=== PATIENT | female | born 1965 | race Caucasian/White ===

== ENCOUNTER 2019-07-15 10:02 | Emergency (ER) | payer OTHER ==
[~2019-07-15] VITALS: Ht 162.6 cm; Wt 89.8 kg
[2019-07-15] MEDS ORDERED: ASPIR 8181 MG (10:22)
[2019-07-15] MEDS ORDERED: ENDOCET 5-3251 EACH (10:23)
[2019-07-15] MEDS ORDERED: DEPAKOTE ER250 MG (10:23)
[2019-07-15] MEDS ORDERED: CLONAZEPAM1 M1 (10:23)
[2019-07-15] MEDS ORDERED: TREXIMET 85-501 EACH (10:24)
== END 2019-07-15 13:08 | disposition home or self-care (01) ==
LOC: ER 10:02
DX: B34.9 Viral infection, unspecified (principal)

== ENCOUNTER 2019-07-20 12:22 | Emergency (ER) | payer OTHER ==
[~2019-07-20] VITALS: Ht 162.6 cm; Wt 92.5 kg
[~2019-07-20 12:22] MED LIST: ASPIR 8181 MG; CLONAZEPAM1 M1; DEPAKOTE ER250 MG; ENDOCET 5-3251 EACH; TREXIMET 85-501 EACH
== END 2019-07-20 18:10 | disposition home or self-care (01) ==
LOC: ER 12:22
DX: B34.9 Viral infection, unspecified (principal); R53.81 Other malaise; Z03.818 Encounter for observation for suspected exposure to other biological agents ruled out

== ENCOUNTER 2019-07-31 11:56 | Emergency (ER) | payer OTHER ==
[~2019-07-31] VITALS: Ht 162.6 cm; Wt 94.3 kg
[2019-07-31] MEDS ORDERED: LEVAQUIN500 MG PO (16:10)
[2019-07-31] MEDS ORDERED: TESSALON PERLE100 MG PO (16:10)
== END 2019-07-31 16:57 | disposition home or self-care (01) ==
LOC: ER 11:56
DX: R06.02 Shortness of breath (principal); R05 Cough

== ENCOUNTER → 2019-08-22 | Emergency (ER) | payer OTHER ==
[~2019-08-22] VITALS: Ht 162.6 cm; Wt 91.2 kg
[~2019-08-22] MED LIST changes: +LEVAQUIN500 MG PO; +TESSALON PERLE100 MG PO
== END | disposition left against medical advice (07) ==
LOC: ER 15:44
DX: Z53.20 Procedure and treatment not carried out because of patient's decision for unspecified reasons (principal)

== ENCOUNTER → 2020-02-13 | Emergency (ER) | payer OTHER ==
[~2020-02-13] VITALS: Ht 162.6 cm; Wt 90.3 kg
[~2020-02-13] MED LIST changes: +INTESTINEX680 M1 PO; +MEDROLPACK PO; +MONODOX100 MG PO; +SYMBICORT 16010.2 GM IH
== END | disposition left against medical advice (07) ==
LOC: ER 11:00
DX: J22 Unspecified acute lower respiratory infection (principal); J45.998 Other asthma; Z03.818 Encounter for observation for suspected exposure to other biological agents ruled out

== ENCOUNTER 2020-02-28 15:42 | Emergency (ER) | payer OTHER ==
[~2020-02-28] VITALS: Ht 162.6 cm; Wt 90.3 kg
[~2020-02-28 15:42] MED LIST changes: -INTESTINEX680 M1 PO; -MEDROLPACK PO; -MONODOX100 MG PO; -SYMBICORT 16010.2 GM IH
[2020-02-29] MEDS ORDERED: INTESTINEX680 M1 PO (10:48)
[2020-02-29] MEDS ORDERED: MONODOX100 MG PO (10:48)
[2020-02-29] MEDS ORDERED: SYMBICORT 16010.2 GM IH (10:48)
[2020-02-29] MEDS ORDERED: MEDROLPACK PO (10:48)
== END 2020-02-29 11:06 | disposition home or self-care (01) ==
LOC: ER 15:42
DX: J45.998 Other asthma (principal); Z03.818 Encounter for observation for suspected exposure to other biological agents ruled out

== ENCOUNTER 2020-03-12 10:24 | Emergency (ER) | payer OTHER ==
[~2020-03-12] VITALS: Ht 162.6 cm; Wt 89.8 kg
[~2020-03-12 10:24] MED LIST changes: +INTESTINEX680 M1 PO; +MEDROLPACK PO; +MONODOX100 MG PO; +SYMBICORT 16010.2 GM IH
== END 2020-03-12 14:47 | disposition home or self-care (01) ==
LOC: ER 10:24
DX: B34.9 Viral infection, unspecified (principal); Z20.828 Contact with and (suspected) exposure to other viral communicable diseases

== ENCOUNTER 2020-04-01 09:27 | Emergency (ER) | payer OTHER ==
[~2020-04-01] VITALS: Ht 162.6 cm; Wt 89.8 kg
[2020-04-01] MEDS ORDERED: AMBIEN5 MG (09:43)
== END 2020-04-01 10:07 | disposition home or self-care (01) ==
LOC: ER 09:27
DX: R05 Cough (principal)

== ENCOUNTER 2020-11-10 19:28 | Emergency (ER) | payer OTHER ==
[~2020-11-10] VITALS: Ht 162.6 cm; Wt 86.2 kg
[~2020-11-10 19:28] MED LIST changes: +AMBIEN5 MG
== END 2020-11-11 | disposition home or self-care (01) ==
LOC: ER 19:28
DX: J31.0 Chronic rhinitis (principal); B34.9 Viral infection, unspecified; Z03.818 Encounter for observation for suspected exposure to other biological agents ruled out; R06.02 Shortness of breath; R05 Cough; R50.9 Fever, unspecified

== ENCOUNTER 2020-11-13 13:03 | Emergency (ER) | payer OTHER ==
[~2020-11-13] VITALS: Ht 162.6 cm; Wt 69.4 kg
[2020-11-13] MEDS ORDERED: ZITHROMAX500 MG PO (16:02)
== END 2020-11-13 16:11 | disposition home or self-care (01) ==
LOC: ER 13:03
DX: B34.9 Viral infection, unspecified (principal); Z20.822 Contact with and (suspected) exposure to COVID-19

== ENCOUNTER 2020-11-18 07:53 | Outpatient (CLI) | payer OTHER ==
[~2020-11-18 07:53] MED LIST changes: +ZITHROMAX500 MG PO
== END 2020-11-18 11:00 | disposition home or self-care (01) ==
LOC: ASH CLINIC 07:53
PROVIDERS: ATTEND General Practice
DX: Z23 Encounter for immunization (principal); U07.1 COVID-19

== ENCOUNTER 2020-12-15 15:45 | Emergency (ER) | payer OTHER ==
[~2020-12-15] VITALS: Ht 162.6 cm; Wt 88.0 kg
== END 2020-12-15 18:13 | disposition home or self-care (01) ==
LOC: ER 15:45
DX: J22 Unspecified acute lower respiratory infection (principal); Z03.818 Encounter for observation for suspected exposure to other biological agents ruled out

== ENCOUNTER 2021-02-14 14:14 | Emergency (ER) | payer OTHER ==
[~2021-02-14] VITALS: Ht 162.6 cm; Wt 89.8 kg
[2021-02-14] MEDS ORDERED: SEROQUEL50 MG PO (14:51)
== END 2021-02-14 18:22 | disposition home or self-care (01) ==
LOC: ER 14:14
DX: B34.9 Viral infection, unspecified (principal); J45.998 Other asthma; Z20.822 Contact with and (suspected) exposure to COVID-19

== ENCOUNTER → 2021-02-18 | Emergency (ER) | payer OTHER ==
[~2021-02-18] VITALS: Ht 162.6 cm; Wt 89.8 kg
[~2021-02-18] MED LIST changes: +SEROQUEL50 MG PO
== END | disposition left against medical advice (07) ==
LOC: ER 13:05
DX: Z53.20 Procedure and treatment not carried out because of patient's decision for unspecified reasons (principal)

== ENCOUNTER 2021-11-01 15:46 | Emergency (ER) | payer OTHER ==
[~2021-11-01] VITALS: Ht 162.6 cm; Wt 86.2 kg
== END 2021-11-01 19:55 | disposition home or self-care (01) ==
LOC: ER 15:46
DX: B34.8 Other viral infections of unspecified site (principal); A49.3 Mycoplasma infection, unspecified site; Z20.828 Contact with and (suspected) exposure to other viral communicable diseases

== ENCOUNTER 2021-12-03 07:34 | Emergency (ER) | payer OTHER ==
[~2021-12-03] VITALS: Ht 162.6 cm; Wt 71.7 kg
[2021-12-03] MEDS ORDERED: BENZONATATE200 M1 PO (11:40)
[2021-12-03] MEDS ORDERED: BUTALB-ACETAMI1 EACH PO (11:40)
[2021-12-03] MEDS ORDERED: BUDESONIDE0.5 MG/2 M IH (11:40)
[2021-12-03] MEDS ORDERED: PROAIR HFA8.5 GM IH (11:40)
== END 2021-12-03 12:37 ==
LOC: ER 07:34
DX: A49.3 Mycoplasma infection, unspecified site (principal); J06.9 Acute upper respiratory infection, unspecified; Z20.822 Contact with and (suspected) exposure to COVID-19

== ENCOUNTER 2022-01-14 18:13 | Emergency (ER) | payer OTHER ==
[~2022-01-14] VITALS: Ht 154.9 cm; Wt 63.5 kg
[~2022-01-14 18:13] MED LIST changes: +BENZONATATE200 M1 PO; +BUDESONIDE0.5 MG/2 M IH; +BUTALB-ACETAMI1 EACH PO; +PROAIR HFA8.5 GM IH
== END 2022-01-15 00:17 | disposition home or self-care (01) ==
LOC: ER 18:13
DX: R10.9 Unspecified abdominal pain (principal); Z20.822 Contact with and (suspected) exposure to COVID-19

== ENCOUNTER 2022-03-17 17:45 | Emergency (ER) | payer OTHER ==
[~2022-03-17] VITALS: Ht 172.7 cm; Wt 89.8 kg
== END 2022-03-17 21:21 | disposition home or self-care (01) ==
LOC: ER 17:45
DX: B34.9 Viral infection, unspecified (principal)

== ENCOUNTER 2022-03-20 16:47 | Emergency (ER) | payer OTHER ==
[~2022-03-20] VITALS: Ht 162.6 cm; Wt 89.8 kg
== END 2022-03-20 20:49 | disposition home or self-care (01) ==
LOC: ER 16:47
DX: U07.1 COVID-19 (principal)

== ENCOUNTER 2022-05-16 15:12 | Emergency (ER) | payer OTHER ==
[~2022-05-16] VITALS: Ht 162.6 cm; Wt 85.7 kg
== END 2022-05-16 19:20 | disposition home or self-care (01) ==
LOC: ER 15:12
DX: K04.7 Periapical abscess without sinus (principal)